=== PATIENT | male | born 1940 | race Caucasian/White ===

== ENCOUNTER 2020-10-28 21:11 | Observation (INO) | payer MEDICARE, SELFPAY ==
[2020-10-28] VITALS (21 sets, daily range): BP systolic 147–191; BP diastolic 61–85; PULSE 50–55; RESP 10–25; O2SAT 91–99
--- NOTE | ~2020-10-28 | XR_ITS ---
EXAMINATION: XR chest 2V DATE: 10/28/2020 21:50 INDICATION: Midsternal chest pain TECHNIQUE: AP and lateral views of the chest are obtained. COMPARISON: 07/07/2018 FINDINGS: The lungs are free of acute opacities. There is atelectasis or scarring in the left lung ba se. There is no pleural effusion or pneumothorax. The heart size is normal. Median sternotomy wires a nd mediastinal surgical clips are seen, likely from prior coronary artery bypass grafting. There is m ild thoracic spondylosis. IMPRESSION: 1. No acute cardiopulmonary abnormality. Reviewed, dictated and finalized at location A.
--- NOTE | 2020-10-28 21:15 | ECG_ITS ---
Measurements Intervals [place] Rate: 55 P: 39 [place]: 209 QRS: 3 QRSD: 93 T: 56 QT: 427 QTc: 410 Interpretive Statements SINUS BRADYCARDIA WITH FIRST DEGREE AV BLOCK DELAYED PRECORDIAL R/S TRANSITION BASELINE ARTIFACT- I, III, AVL ABNORMAL ECG Electronically Signed On 10-29-2020 6:29:09 CDT by Pranav Albarado D.O.
--- NOTE | 2020-10-28 21:30 | ED.CHESTPAIN ---
HPI - Chest Pain General Chief Complaint: Chest Pain Stated Complaint: cp; b/p issues Time Seen by Provider: 10/28/20 21:18 Source: patient Mode of arrival: ambulatory Limitations: no limitations History of Present Illness HPI narrative: Patient is an 80-year-old male complaining of chest pain, midsternal, pressure, intermittent, 8 out of 10 earlier, took nitro and now pain is resolved, started approximately 1 week ago. Patient states that he has been going under a lot of stress lately due to his 's recent diagnosis dementia. Patient denies any shortness of breath, abdominal pain, nausea, vomiting, diaphoresis, fever or chills Related Data Allergies Allergy/AdvReac Type Severity Reaction Status Date / Time No Known Allergies Allergy Verified 07/07/18 11:18 Review of Systems Review of Systems: All systems reviewed & are unremarkable except as noted in HPI and below Constitutional: Constitutional: Denies body ache(s), Denies chills, Denies excessive sweating, Denies fatigue, Denies fever(s), Denies headache(s), Denies lethargy, Denies malaise, Denies weakness and Denies weight loss Eyes: Eyes: Denies blurry vision, Denies change in vision and Denies loss of vision ENT: Denies dizziness, Denies ear discharge, Denies headache(s), Denies lip swelling, Denies epistaxis, Denies nasal congestion, Denies neck pain, Denies throat swelling and Denies tongue swelling Cardiovascular: Cardiovascular: Denies diaphoresis, Denies rapid heart rate, Denies edema, Denies irregular heart rhythm, Denies lightheadedness, Denies palpitations, Denies dyspnea and Denies dyspnea on exertion Respiratory: Respiratory: Denies chest congestion, Denies cough, Denies hemoptysis, Denies dyspnea and Denies dyspnea on exertion Gastrointestinal: Gastrointestinal: Denies abdominal pain, Denies melena, Denies hematochezia, Denies diarrhea, Denies nausea, Denies vomiting and Denies hematemesis Musculoskeletal: Musculoskeletal: Denies abnormal gait, Denies deformity, Denies joint swelling, Denies limited range of motion, Denies neck pain and Denies numbness Neurologic: Denies Abnormal speech present, Denies abnormal gait, Denies confusion, Denies dizziness, Denies headache(s), Denies focal weakness, Denies loss of vision, Denies numbness, Denies Other visual disturbances, Denies Sensory deficit (Neuro) and Denies weakness Psychiatric: Psychiatric: Denies confusion, Denies depression, Denies auditory hallucinations, Denies homicidal ideation and Denies suicidal ideation Endocrine: Endocrine: Denies cold intolerance, Denies excessive sweating, Denies fatigue, Denies heat intolerance and Denies palpitations Hematologic/Lymphatic: Hematologic/Lymphatic: Denies easy bleeding and Denies easy bruising Allergic/Immunologic: Allergic/Immunologic: Denies lip swelling, Denies throat swelling and Denies tongue swelling PMFSH Comments Past medical history: Hypertension, hyperlipidemia, coronary disease, CABG, stent placement Family history: Noncontributory Social history: Non-smoker, no EtOH use Exam Const: General: cooperative, healthy appearing, comfortable, no acute distress, well developed, alert and awake; No confusion Orientation/consciousness: oriented to person, oriented to place, oriented to time, patient oriented x3 and No confusion Limitations: no limitations HENMT: Head: normal to inspection, normocephalic and atraumatic Ears: hearing grossly normal bilaterally, TM normal on the right and TM normal on the left General nose exam: Normal external nose present, Normal nares present and No nasal discharge present Face and sinus: normal facial exam Mouth: Yes Normal oral and palatal mucosa present, Yes lip normal, Yes tongue normal and Yes oropharynx normal Throat: posterior oropharynx normal, tonsils normal and uvula midline Eyes: General: appearance normal, both eyes and all related structures Pupils: Equal, round and reactive pupils present EOM: EOMs intact bilate
[2020-10-28 21:43] LABS: Basophils Absolute Auto 0.1 K/mm3 (0.0-0.1); Basophils Percent Auto 0.9 % (0.2-1.2); Eosinophils Absolute Auto 0.2 K/mm3 (0-0.3); Eosinophils Percent Auto 2.7 % (0-4.4); Hemoglobin 14.2 g/dL (14.0-18.0); Immature Granulocyte Absolute 0.01 K/mm3 (0.00-0.031); Immature Granulocyte Percent A 0.2 % (0-0.5); Lymphocytes Absolute Auto 1.66 K/mm3 (0.9-3.2); Lymphocytes Percent Auto 30.3 % (18.3-44.2); Mean Corpuscular Hemoglobin 31.8 pg (26-34); Mean Corpuscular Volume 96.4 fl (80-100); Mean Platelet Volume 10.7 fl (7.4-10.4); Monocytes Absolute Auto 0.6 K/mm3 (0.1-0.6); Monocytes Percent Auto 10.4 % (2.6-8.5); Neutrophils Percent Auto 55.5 % (45.5-73.1); Platelet Count Result 157 k/mm3 (150-375); Red Blood Count 4.46 M/mm3 (4.6-6.20); Red Cell Distribution Width 12.9 % (11.5-14.5); White Blood Count 5.5 K/mm3 (4.5-10.0)
[2020-10-28 21:52] LABS: INR 0.9; Prothrombin Time 13.2 Seconds (11.1-14.7)
[2020-10-28 21:53] LABS: Partial Thromboplastin Time 25.9 SECONDS (22.3-36.8)
[2020-10-28 21:55] LABS: Anion Gap 9 mmol/L (8-16); Blood Urea Nitrogen 14 mg/dL (9-20); Calcium 9.3 mg/dL (8.4-10.2); Carbon Dioxide 24 mmol/L (22-30); Chloride 106 mmol/L (98-107); Estimated CRCL calculation 55 ml/min; Estimated Glomerular Filt Rate > 60; Glucose 96 mg/dL (75-110); Potassium 4.1 mmol/L (3.4-5.0); Sodium 139 mmol/L (137-145)
[2020-10-28 22:06] LABS: Troponin I < 0.012 ng/mL (0.000-0.034)
[2020-10-28] MEDS: NITROGLYCERIN OINTMENT 1 INCH DOSE TRANSDERM (22:26)
[2020-10-29] VITALS (14 sets, daily range): BP systolic 143–180; BP diastolic 59–85; PULSE 47–60; RESP 16–20; TEMP 36–36.4; O2SAT 98–100; BMI 26.7
--- NOTE | 2020-10-29 00:11 | PC.NURSE ---
This patient, Taurus Reid, was admitted to IMU Room 205-02 on 10/29/20 at 0010. Patient/family oriented to hospital policies and general routines including ID bracelet, bed and alarms, visiting hours, pain management, procedures, bathroom and other care routines, personal items, smoking policy, room service/diet, and visiting hours. Information on how to activate the Rapid Response Team has been discussed. Patient/Family are encouraged to report perceived risks to care and to ask questions if they do not understand what they are told or what they should do.
[2020-10-29 01:26] LABS: Troponin I < 0.012 ng/mL (0.000-0.034)
--- NOTE | 2020-10-29 04:34 | PM.IMHP ---
H&P: HPI History of Present Illness Date/Time: 10/29/20 04:34 Chief Complaint: chest pain Narrative: Patient is an 80-year-old male who present to the ed with compalis of chest pain, which is midsternal in location, 8/10 in intensity, intermittently happening since a week now. however was severe yeserday afternoon. he took some nitro which hleped some but he came to the ED for evaluation. By the time, he got in the ED, the chest pain has resovled. he reports he has not had any chest pain but has some chest discomfort which has been persistnet. he reports he has been going through a lot of stress lately due to his 's recent diagnosis of dementia. he blaise any sob, abdominal pain, nausea, vmoitgin, diaphoreiss or fever or chills. The chest pain are non exertional in nature. he is planned to see Dr. Thomas in 2 weeks for his cardiac follow up. Review of Systems Review of Systems: Narrative: - CONSTITUTIONAL: Denies weight loss, fever and chills. - HEENT: Denies changes in vision and hearing - RESPIRATORY: Denies SOB and cough. - CV: Denies palpitations and reports CP. - GI: Denies abdominal pain, nausea, vomiting and diarrhea. - : Denies dysuria and urinary frequency. - MSK: Denies myalgia and joint pain. - SKIN: Denies rash and pruritus. - NEUROLOGICAL: Denies headache and syncope. - PSYCHIATRIC: Denies recent changes in mood. Denies anxiety and depression. All systems reviewed & are unremarkable except as noted in HPI and below [facility] Family History Family History Mother Cerebral hemorrhage Hypertension Cerebrovascular accident Sibling Diabetes mellitus Breast cancer Hypertension Sibling Breast cancer Sibling Lung cancer Social History Social History Smoking packs per day: 0.5 Smoking cigarettes per day: 10.0 Years smoked: 6 Smoking pack-years: 3.00 Smoking status: Former smoker Alcohol intake: current Drinks per week: 6 Substance use: never Spiritual care concerns: No Meds Home Medications and Allergies Home Medications Medication Instructions Recorded Confirmed Type acetaminophen [Tylenol Extra 500 mg PO Q6H 10/29/20 10/29/20 History Strength] alprazolam 0.5 mg PO BID PRN 10/29/20 10/29/20 History aspirin 325 mg PO DAILY 10/29/20 10/29/20 History bupropion HCl 150 mg PO BID 10/29/20 10/29/20 History metoprolol succinate 50 mg PO DAILY 10/29/20 10/29/20 History rosuvastatin 5 mg PO DAILY 10/29/20 10/29/20 History tamsulosin 0.4 mg PO BID 10/29/20 10/29/20 History Allergies Allergy/AdvReac Type Severity Reaction Status Date / Time No Known Allergies Allergy Verified 10/29/20 00:38 Vital Signs Vital Signs - 24 hr 10/28/20 21:20 10/28/20 21:22 10/28/20 21:27 Temperature Pulse Rate 52 L 55 L 54 L Respiratory Rate 23 H 10 L 14 Blood Pressure 180/85 H 180/85 H Pulse Oximetry 99 99 97 10/28/20 21:30 10/28/20 21:31 10/28/20 21:49 Temperature Pulse Rate 54 L 52 L 55 L Respiratory Rate 21 H 15 19 Blood Pressure 191/77 H Pulse Oximetry 95 97 97 10/28/20 21:50 10/28/20 22:11 10/28/20 22:12 Temperature Pulse Rate 51 L 50 L 51 L Respiratory Rate 19 17 17 Blood Pressure 161/70 H 152/67 H Pulse Oximetry 94 97 95 10/28/20 22:15 10/28/20 22:16 10/28/20 22:30 Temperature Pulse Rate 50 L 50 L 51 L Respiratory Rate 25 H 19 18 Blood Pressure 148/67 H Pulse Oximetry 96 94 94 10/28/20 22:31 10/28/20 22:45 10/28/20 23:00 Temperature Pulse Rate 50 L 51 L 51 L Respiratory Rate 17 20 18 Blood Pressure 147/61 H Pulse Oximetry 93 95 94 10/28/20 23:01 10/28/20 23:02 10/28/20 23:15 Temperature Pulse Rate 51 L 50 L 53 L Respiratory Rate 17 16 23 H Blood Pressure 155/70 H Pulse Oximetry 95 96 91 10/28/20 23:30 10/28/20 23:31 10/28/20 23:49 Temperature Pulse Rate 51 L 51 L 54 L Respiratory Rate 17 16 14 Blood Pressure 155/72 H Pulse
[2020-10-29 04:54] LABS: Cholesterol 152 mg/dL (0-200); HDL Direct 40 mg/dL; Triglycerides 243 mg/dL (<150)
[2020-10-29 05:04] LABS: LDL Cholesterol Direct 64 mg/dL
[2020-10-29 05:13] LABS: Troponin I < 0.012 ng/mL (0.000-0.034)
--- NOTE | 2020-10-29 06:05 | ECG_ITS ---
Measurements Intervals [place] Rate: 49 P: 26 [place]: 266 QRS: -4 QRSD: 94 T: 50 QT: 439 QTc: 396 Interpretive Statements SINUS BRADYCARDIA WITH FIRST DEGREE AV BLOCK DELAYED PRECORDIAL R/S TRANSITION ABNORMAL ECG Electronically Signed On 10-29-2020 10:26:54 CDT by Pranav Albarado D.O.
[2020-10-29] MEDS: NITROGLYCERIN SL 0.4 MG TABLET SUBLINGUAL ×2 (06:15→06:21)
[2020-10-29 07:04] LABS: Troponin I < 0.012 ng/mL (0.000-0.034)
--- NOTE | 2020-10-29 07:58 | PM.IMPN ---
Progress Note: A&P Assessment and Plan (1) Chest pain: Qualifiers: Chest pain type: unspecified Qualified Code(s): R07.9 - Chest pain, unspecified Code(s): R07.9 - Chest pain, unspecified Status: Acute Assessment and Plan: First set of cardiac enzyme is negative. Cardiology consult ordered. (2) Hypertension: Qualifiers: Hypertension type: essential hypertension Qualified Code(s): I10 - Essential (primary) hypertension Code(s): I10 - Essential (primary) hypertension Status: Acute Assessment and Plan: Stable on meds (3) Hx of CABG: Code(s): Z95.1 - Presence of aortocoronary bypass graft Status: Acute Assessment and Plan: cardiology consult ordered (4) History of heart artery stent: Code(s): Z95.5 - Presence of coronary angioplasty implant and graft Status: Acute Assessment and Plan: stable on meds, cardiology consult ordered (5) Former smoker: Code(s): Z87.891 - Personal history of nicotine dependence Status: Acute Assessment and Plan: counseling given (6) Hyperlipidemia: Code(s): E78.5 - Hyperlipidemia, unspecified Status: Acute Assessment and Plan: stable on meds (7) BPH (benign prostatic hyperplasia): Code(s): N40.0 - Benign prostatic hyperplasia without lower urinary tract symptoms Status: Acute Assessment and Plan: stable on meds Additional Plan # Atypcial Chest pain: serial troponin. ekg sinus bradyarida, compared to preivous EKG, no new changes. cardiology with dr Lamb consulted form ED. # Hx of CAD s/p CABG 2013 and previous stent placement: bb, statin, aspirin. # former smoker # HTN: intermittent high. which could be th reason for chest pain too. seng continue home medication adn monitor. # HLP # BPH # Recent stressor. # DVT proph: pas boots admit under observation status cardiology consult ordered. Will continue current treatment. Subjective Date/time seen: 10/29/20 07:58 Patient was seen during the morning rounds today. Patient had chest pain last night. No shortness of breath. No fever no chills. No nausea, vomiting. Mood stable. Review of Systems Review of Systems: All systems reviewed & are unremarkable except as noted in HPI and below Exam Narrative: Exam Narrative: GENERAL: The patient is well developed, not in acute distress HEENT: Nonicteric sclerae, PERRLA, EOMI. Oropharynx clear. Moist mucous membranes. Conjunctivae appear well perfused. CHEST: Chest wall is nontender. HEART: Regular rate and rhythm without murmur, rubs, or gallops LUNGS: Clear to auscultation bilaterally. no respiratory distress ABDOMEN: Soft, positive bowel sounds, non-tender, no organomegaly. SKIN: No rash, no excessive bruising, petechiae, or purpura. NEUROLOGIC: Cranial nerves II-XII intact, alert and oriented x 3, no gross motor deficits EXTREMITIES: no edema, cyanosis or clubbing Objective Data Vital Signs Vital Signs: Vital Signs - 24 hr 10/28/20 21:20 10/28/20 21:22 10/28/20 21:27 Temperature Pulse Rate 52 L 55 L 54 L Respiratory Rate 23 H 10 L 14 Blood Pressure 180/85 H 180/85 H Pulse Oximetry 99 99 97 10/28/20 21:30 10/28/20 21:31 10/28/20 21:49 Temperature Pulse Rate 54 L 52 L 55 L Respiratory Rate 21 H 15 19 Blood Pressure 191/77 H Pulse Oximetry 95 97 97 10/28/20 21:50 10/28/20 22:11 10/28/20 22:12 Temperature Pulse Rate 51 L 50 L 51 L Respiratory Rate 19 17 17 Blood Pressure 161/70 H 152/67 H Pulse Oximetry 94 97 95 10/28/20 22:15 10/28/20 22:16 10/28/20 22:30 Temperature Pulse Rate 50 L 50 L 51 L Respiratory Rate 25 H 19 18 Blood Pressure 148/67 H Pulse Oximetry 96 94 94 10/28/20 22:31 10/28/20 22:45 10/28/20 23:00 Temperature Pulse Rate 50 L 51 L 51 L Respiratory Rate 17 20 18 Blood Pressure 147/61 H Pulse Oximetry 93 95 94 10/28/20 23:01 10/28/20 23:
[2020-10-29] MEDS: ASPIRIN 325 MG TABLET PO (08:35)
[2020-10-29] MEDS: ROSUVASTATIN 5 MG TABLET PO (08:36)
--- NOTE | 2020-10-29 08:52 | PM.CNCAR ---
Assessment and Plan Additional Plan 1- Chest pain. 2- uncontrolled hypertension. 3- history of CABG. 4- hyperlipidemia. 5- sinus bradycardia secondary to Toprol XL. this is a 80-year-old patient with past history of CABG, hypertension, hyperlipidemia who presents to the hospital with central chest discomfort. This started because he has lately being stressed out about his getting dementia. He does not have Much help at home. EKGs show no ischemia. Troponin is negative. His chest pain is atypical. Blood pressure on presentation 180/100. Agree with adding lisinopril 10 mg twice a day. Continue Toprol-XL. - relieve his chest pain is related to uncontrolled hypertension And stress.no indication at this time for ischemic evaluation. will aim at controlling blood pressure. - If patient tolerates lisinopril he can be discharged home later on. Patient has appointment to follow-up with Dr. Thomas on November 23. History of Present Illness History of Present Illness Consult date/time: Date of service: 10/29/20 08:52 Requesting physician: Asaf Mcdonough MD Consult reason: chest pain Reason For Visit: CHEST PAIN Narrative: Is 80-year-old patient with past medical history of CABG,hyperlipidemia, depression and hypertension.He follows up with Dr. Thomas. he is under a lot of stress because his is developing dementia. He describes central chest mild discomfort with no radiation. Aggravated by stress. He describes it as stress ache . denies shortness of breath,, dizziness, syncope, palpitations. His blood pressure at home has been running high as he mentions. His grandson and granddaughter help with his . blood pressure on admission 180/100 and now blood pressure running between 140s to 160 systolic. Heart rate in the 50s, chest x-ray reviewed and analyzed massive looks unremarkable, EKG reviewed as myself looks unremarkable. Creatinine 1. Troponins x4 negative. Review of Systems Constitutional: Constitutional: Denies chills, Denies fever(s) and Denies poor appetite Eyes: Eyes: Denies eye discharge, Denies loss of vision, Denies eye pain and Denies photophobia ENT: Denies dizziness, Denies epistaxis, Denies nasal congestion and Denies sore throat Cardiovascular: Cardiovascular: Reports chest pain, Reports chest pain at rest, Denies syncope, Denies pedal edema, Denies leg edema, Denies palpitations, Denies dyspnea, Denies dyspnea on exertion and Denies orthopnea Respiratory: Respiratory: Denies cough, Denies dyspnea, Denies dyspnea on exertion and Denies wheezing Gastrointestinal: Gastrointestinal: Denies abdominal pain, Denies diarrhea, Denies nausea and Denies vomiting Genitourinary: Genitourinary: Denies hematuria, Denies genital lesions and Denies dysuria Musculoskeletal: Musculoskeletal: Denies arthralgias, Denies joint swelling and Denies numbness Integumentary/Breasts: Skin/Breast: Denies pruritus and Denies rash Neurologic: Denies dizziness, Denies syncope, Denies loss of vision and Denies numbness Psychiatric: Psychiatric: Denies anxiety and Denies depression Endocrine: Endocrine: Denies cold intolerance, Denies heat intolerance and Denies palpitations Hematologic/Lymphatic: Hematologic/Lymphatic: Denies easy bleeding and Denies easy bruising Allergic/Immunologic: Allergic/Immunologic: Denies urticaria and Denies wheezing [facility] Family History Family History Mother Cerebral hemorrhage Hypertension Cerebrovascular accident Sibling Diabetes mellitus Breast cancer Hypertension Sibling Breast cancer Sibling Lung cancer Social History Social History Smoking packs per day: 0.5 Smoking cigarettes per day: 10.0 Years smoked: 6 Smoking pack-years: 3.00 Smoking status: Former smoker Alcohol intake: current Drinks per week: 6 Substance use: never Spiritual care concerns: No Meds Home Medicatio
[2020-10-29 10:04] LABS: Troponin I < 0.012 ng/mL (0.000-0.034)
[2020-10-29] MEDS: METOPROLOL SUCCINATE EXT REL 50 MG TABCR PO (10:12)
[2020-10-29] MEDS: TAMSULOSIN HCL 0.4 MG CAPSULE PO (10:12)
[2020-10-29] MEDS: HEPARIN SODIUM 5,000 UNITS/ML VIAL 5000 UNITS SUB-Q (10:13)
[2020-10-29] MEDS: lisinopriL 10 MG TABLET PO ×2 (11:08→15:52)
[2020-10-29 14:22] LABS: Troponin I < 0.012 ng/mL (0.000-0.034)
--- NOTE | 2020-10-29 16:40 | PC.NURSE ---
Home meds returned to patient @1640.
--- NOTE | 2020-11-19 11:21 | PM.DS ---
DS: Admitting Diagnosis Admitting Diagnosis Admitting Diagnosis: Chest pain Hypertension DS: Discharge Diagnosis Discharge Diagnosis (1) Chest pain: Qualifiers: Chest pain type: unspecified Qualified Code(s): R07.9 - Chest pain, unspecified Code(s): R07.9 - Chest pain, unspecified Status: Acute Assessment and Plan: First set of cardiac enzyme is negative. Cardiology consult ordered. (2) Hypertension: Qualifiers: Hypertension type: essential hypertension Qualified Code(s): I10 - Essential (primary) hypertension Code(s): I10 - Essential (primary) hypertension Status: Acute Assessment and Plan: Stable on meds (3) Hx of CABG: Code(s): Z95.1 - Presence of aortocoronary bypass graft Status: Acute Assessment and Plan: cardiology consult ordered (4) History of heart artery stent: Code(s): Z95.5 - Presence of coronary angioplasty implant and graft Status: Acute Assessment and Plan: stable on meds, cardiology consult ordered (5) Former smoker: Code(s): Z87.891 - Personal history of nicotine dependence Status: Acute Assessment and Plan: counseling given (6) Hyperlipidemia: Code(s): E78.5 - Hyperlipidemia, unspecified Status: Acute Assessment and Plan: stable on meds (7) BPH (benign prostatic hyperplasia): Code(s): N40.0 - Benign prostatic hyperplasia without lower urinary tract symptoms Status: Acute Assessment and Plan: stable on meds DS: Summary Hospital Course Reason for hospitalization: Chest Pain Hospital Course: Patient was admitted with chest pain. Patient has history of hypertension. Serial enzymes and medical management was provided. Patient was discharged home in stable condition. Time spent discussing smoking cessation with patient: 3 to 10 minutes Time Spent with Patient Time attestation: Total time spent providing and/or coordinating discharge services: Time spent: Less than 30 minutes Exam Narrative: Exam Narrative: GENERAL: The patient is well developed, not in acute distress HEENT: Nonicteric sclerae, PERRLA, EOMI. Oropharynx clear. Moist mucous membranes. Conjunctivae appear well perfused. CHEST: Chest wall is nontender. HEART: Regular rate and rhythm without murmur, rubs, or gallops LUNGS: Clear to auscultation bilaterally. no respiratory distress ABDOMEN: Soft, positive bowel sounds, non-tender, no organomegaly. SKIN: No rash, no excessive bruising, petechiae, or purpura. NEUROLOGIC: Cranial nerves II-XII intact, alert and oriented x 3, no gross motor deficits EXTREMITIES: no edema, cyanosis or clubbing Discharge Plan Discharge Attending physician on discharge: genaro Consulting providers: Juan Priest ; Gabriel Roberts ; Pranav Albarado Discharging Clinician: genaro Patient Disposition: Home, Self-Care Activity: as tolerated Diet: heart healthy Patient Instructions: Antibiotic Form Stand Alone Forms: General Discharge Information Follow-up/Referrals: Tod Cornelius MD [Physician] - Gabriel Roberts MD [Physician] - 1 Week Adriana,Raheel Rivera MD [Primary Care Provider] - Discharge Medications: New lisinopril 10 mg Tablet 10 mg PO Q12HR Qty: 60 RF: 0 nitroglycerin [Nitrostat] 0.4 mg Tablet, Sublingual 0.4 mg sublingual Q5MIN PRN (Reason: Chest Pain) Qty: 30 RF: 0 Continued bupropion HCl 150 mg tablet sustained-release 12 hr 150 mg PO BID RF: 0 aspirin 325 mg Tablet 325 mg PO DAILY RF: 0 metoprolol succinate 50 mg tablet extended release 24 hr 50 mg PO DAILY RF: 0 acetaminophen [Tylenol Extra Strength] 500 mg Tablet 500 mg PO Q6H RF: 0 alprazolam 0.5 mg tablet 0.5 mg PO BID PRN (Reason: Anxiety) RF: 0 tamsulosin 0.4 mg capsule 0.4 mg PO BID RF: 0 rosuvastatin 5 mg tablet 5 mg PO DAILY RF: 0 Date of admission: 10/28/20 22:50 Primary Care
== END 2020-10-29 16:49 | disposition home or self-care (01) ==
LOC: ANHED 22:56 → ANHIMU 10-29 07:48
PROVIDERS: Admitting Provider Internal Medicine; Emergency Provider Emergency Medicine; PCP Family Medicine; Visit Provider Internal Medicine
DX: R07.9 Chest pain, unspecified (principal); I10 Essential (primary) hypertension; E78.5 Hyperlipidemia, unspecified; N40.0 Benign prostatic hyperplasia without lower urinary tract symptoms; Z95.5 Presence of coronary angioplasty implant and graft; Z95.1 Presence of aortocoronary bypass graft; Z87.891 Personal history of nicotine dependence
CPT/HCPCS: 36415; 71046; 80048; 80061; 84443; 84484; 85025; 85610; 85730; 93005; 96372; 99285; A9270; G0378; J1644

== ENCOUNTER 2024-03-23 08:51 | Observation (INO) | payer MEDICARE, SELFPAY ==
--- NOTE | ~2024-03-23 | CT_ITS ---
EXAMINATION: CT brain wo con DATE: 03/23/2024 11:52 INDICATION: Head injury. TECHNIQUE: Computed tomography (CT) of the head was performed without intravenous contrast. The mA wa s adjusted according to patient size. Iterative reconstruction technique was employed. The dose-lengt h product was 908.00 mGy-cm. 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 There is no intracranial hemorrhage, acute infarction, or abnormal intracranial mass lesion. There are scattered areas of low attenuation in the cerebral white matter, which is within normal limits for the patient's age. The ventricles are normal in size. There are likely changes of ocular lens replacement surgeries. There is mild mucosal thickening in the ethmoid sinuses. The mastoid air cells are normal. IMPRESSION: 1. 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 Reviewed, dictated and finalized at location A.
--- NOTE | ~2024-03-23 | CT_ITS ---
EXAMINATION: CT chest abdomen pelvis w con DATE: 03/23/2024 11:52 INDICATION: Abdominal pain. Nausea and vomiting. Shortness of breath. TECHNIQUE: Computed tomography (CT) of the chest, abdomen, and pelvis was performed with 100 mL Omnip aque 350 intravenous contrast. Automated exposure control and iterative reconstruction technique were employed. The dose-length product was 460.75 mGy-cm. COMPARISON: Chest CT 05/19/2015 FINDINGS: CHEST CT: There is mild scarring at the lung apices. There is mild atelectasis bilaterally. There is a trace le ft pleural effusion. The heart size is normal. There are coronary artery calcifications. No pericardi al effusion. There are changes of coronary artery bypass grafting. There is ectasia of ascending aort a measuring 4.3 cm. There is mild thoracic spondylosis. ABDOMEN/PELVIS CT: The liver and gallbladder are normal. There are subcentimeter hypodense masses in the spleen, likely granulomatosis disease. The pancreas and adrenal glands are normal. There are striated nephrograms in the kidneys, left worse than right, consistent with pyelonephritis. There is a right inguinal hernia containing nonobstructed small bowel. There is a left inguinal hernia containing fat. There is calci fied atherosclerosis of the aorta and many of the other arteries. There are 3 saccular aneurysms of i nfrarenal aorta with the largest measuring 2.5 cm. There are no pathologically enlarged lymph nodes. There is no free intraperitoneal fluid. There is moderate lumbar spondylosis. IMPRESSION: 1. Bilateral pyelonephritis, left worse than right. 2. Right inguinal hernia containing nonobstructed small bowel. Left inguinal hernia containing fat. 3. 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 Reviewed, dictated and finalized at location A. IMPRESSION: 1. Bilateral pyelonephritis, left worse than right. 2. Right inguinal hernia containing nonobstructed small bowel. Left inguinal he rnia containing fat. 3. 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
[2024-03-23 08:53] VITALS: BP 142/117; PULSE 63; RESP 17; TEMP 36.5; O2SAT 96
[2024-03-23 09:03] VITALS: PULSE 60; O2SAT 96
[2024-03-23 09:09] VITALS: BP 100/67; PULSE 60; RESP 20; O2SAT 100
--- NOTE | 2024-03-23 09:34 | ED.GENADULT ---
HPI - General Adult General Chief complaint: Weakness Stated complaint: weakness, nausea & vomiting Time Seen by Provider: 03/23/24 08:56 History of Present Illness HPI narrative: 83-year-old male presenting to the emergency department for evaluation for increased generalized weakness with associated nausea and vomiting. Patient states he began feeling ill on Monday and did have his 1st emesis on Monday night and through . Patient states since he has had increasing generalized weakness did have some intermittent abdominal pain, patient has also had persistent hiccups since the emesis started. Patient was complaining of some shortness of breath and does appear to be more winded per family. Related Data Home Medications Medication Instructions Recorded Confirmed acetaminophen 500 mg tablet 500 mg PO Q6H 10/29/20 03/23/24 (Tylenol Extra Strength) alprazolam 0.5 mg tablet 0.5 mg PO BID PRN Anxiety 10/29/20 03/23/24 aspirin 325 mg tablet 325 mg PO DAILY 10/29/20 03/23/24 bupropion HCl 150 mg tablet,12 hr 150 mg PO BID 10/29/20 03/23/24 sustained-release metoprolol succinate 50 mg 50 mg PO DAILY 10/29/20 03/23/24 tablet,extended release 24 hr losartan 25 mg tablet 25 mg PO DAILY 03/23/24 03/23/24 Allergies Allergy/AdvReac Type Severity Reaction Status Date / Time No Known Allergies Allergy Verified 03/23/24 09:05 Review of Systems Review of Systems: All systems reviewed & are unremarkable except as noted in HPI and below PMFSH Family History Family History Mother Cerebral hemorrhage Hypertension Cerebrovascular accident Sibling Diabetes mellitus Breast cancer Hypertension Sibling Breast cancer Sibling Lung cancer Social History Social History Smoking packs per day: 1 Smoking cigarettes per day: 20.0 Years smoked: 2 Smoking pack-years: 2.00 Smoking status: Former smoker Tobacco type: cigarettes Alcohol intake: current Drinks per week: 4 Substance use: never Substance use type: does not use Do You Feel Safe in your Home?: Yes Lack of Transportation: No Lack of Food: Sometimes True Current Housing: I Have Housing Concerned About Future Housing: No Difficulty Paying Gas/Electric Bills: No Difficulty Paying for Meds: No Currently Unemployed: No Education: Decline to Answer Difficulty w/ Childcare or Family Care: No Spiritual care concerns: No Exam Narrative: APPEARANCE: Ill-appearing HEAD: normocephalic, atraumatic. EYES: PERRLA/EOMI, conjunctivae clear. NOSE: Normal no drainage EARS:TMS clear with good light reflex. THROAT: Pharynx clear, no exudate. NECK: Supple. No adenopathy, no masses. RESPIRATORY: Decreased breath sounds bilaterally CARDIOVASCULAR: Regular rate and rhythm without murmurs rubs or gallops. ABDOMINAL: Soft, nontender, nondistended, normal bowel sounds MUSCULOSKELETAL: Moves all extremities. Strength/ROM intact, No edema, No calf tenderness. NEURO: Alert. Cranial nerves II through XII intact. Good gait. Good coordination SKIN: Warm, dry. Normal Color Course Course Emergency Course: Patient was admitted to the hospitalist Vital Signs Vital signs: Vital Signs Temperature 97.7 F 03/23/24 08:53 Pulse Rate 63 03/23/24 08:53 Respiratory Rate 17 03/23/24 08:53 Blood Pressure 142/117 H 03/23/24 08:53 Pulse Oximetry 96 03/23/24 08:53 Oxygen Delivery Room Air 03/23/24 08:53 Temperature 101.3 F H 03/23/24 16:00 Pulse Rate 69 03/23/24 16:00 Respiratory Rate 20 03/23/24 16:00 Blood Pressure 103/54 L 03/23/24 16:00 Pulse Oximetry 98 03/23/24 16:00 Oxygen Delivery Room Air 03/23/24 13:24 Medical Decision Making [facility] Narrative Medical decision making narrative: 83-year-old male presenting to the emergency department for evaluation for increased
[2024-03-23 10:28] LABS: Add Urine Microscopic? YES; Appearance Urine Clear (Clear); Bacteria Urine 3+ /hpf; Bilirubin Urine Negative (Negative); Blood Urine 2+ (Negative); Color Urine Yellow (Yellow); Glucose Urine UA Negative (Negative); Ketones Urine Negative (Negative); Leukocyte Esterase Ur 2+ LEU/UL (Negative); Need Manual Microscopic Reviewed; Nitrate Urine Positive (Negative); Non Pathogenic Casts 0-2; Protein Urine 1+ mg/dL (Negative); RBC Urine 0-2 /hpf (0-2); Specific Grav Ur 1.007 (1.001-1.035); Squamous Epithelial Cell Urine None Seen /hpf (Few); Urobilinogen Urine 0.2 mg/dL (<2.0); WBC Urine 21-50 /hpf (0-3)
[2024-03-23 10:44] LABS: Basophils Absolute Auto 0.1 K/mm3 (0.0-0.1); Basophils Percent Auto 0.3 % (0.2-1.2); Eosinophils Percent Auto 0.1 % (0-4.4); Hematocrit 37.6 % (42.0-52.0); Hemoglobin 12.6 g/dL (14.0-18.0); Immature Granulocyte Absolute 0.23 K/mm3 (0.00-0.031); Immature Granulocyte Percent A 0.9 % (0-0.5); Lymphocytes Absolute Auto 1.07 K/mm3 (0.9-3.2); Lymphocytes Percent Auto 4.4 % (18.3-44.2); Mean Corpuscular HGB Conc 33.5 g/dl (32-36); Mean Corpuscular Hemoglobin 31.3 pg (26-34); Mean Corpuscular Volume 93.5 fl (80-100); Mean Platelet Volume 9.5 fl (7.4-10.4); Monocytes Absolute Auto 0.8 K/mm3 (0.1-0.6); Monocytes Percent Auto 3.4 % (2.6-8.5); Neutrophils Absolute Auto 22.1 K/mm3 (1.3-6.7); Neutrophils Percent Auto 90.9 % (45.5-73.1); Platelet Count Result 275 k/mm3 (150-375); Red Blood Count 4.02 M/mm3 (4.6-6.20); Red Cell Distribution Width 13.9 % (11.5-14.5); White Blood Count 24.3 K/mm3 (4.5-10.0)
[2024-03-23 10:53] LABS: Influenza A QL RT-PCR Negative (Negative); Influenza B QL RT-PCR Negative (Negative); RSV RNA, RT-PCR Negative (Negative); SARS-CoV-2 RNA PCR Negative (Negative)
[2024-03-23 10:56] LABS: Alanine Aminotransferase 20 U/L (6-50); Albumin Level 3.8 g/dL (3.5-5.1); Alkaline Phosphatase 200 U/L (38-126); Anion Gap 14 mmol/L (4-12); Aspartate Amino Transferase 43 U/L (17-59); Bilirubin,Total 1.2 mg/dL (0.2-1.3); Blood Urea Nitrogen 55 mg/dL (9-20); Calcium 9.1 mg/dL (8.4-10.2); Carbon Dioxide 19 mmol/L (22-30); Chloride 97 mmol/L (98-107); Estimated CRCL calculation 23 ml/min; Estimated Glomerular Filt Rate 36; Glucose 84 mg/dL (65-110); Potassium 4.7 mmol/L (3.4-5.0); Sodium 130 mmol/L (137-145)
[2024-03-23 10:57] LABS: INR 1.1; Prothrombin Time 14.2 Seconds (11.1-14.7)
[2024-03-23 10:58] LABS: Partial Thromboplastin Time 23.3 Seconds (22.3-36.8)
[2024-03-23] MEDS: SODIUM CHLORIDE 0.9% IV 1,000 ML 999 ML IV CONT (11:52)
[2024-03-23] MEDS: MORPHINE SULFATE (*CRX) 2 MG/ML INJ IV PUSH (11:53)
[2024-03-23 12:02] VITALS: BP 133/72; PULSE 84; RESP 20; O2SAT 100
--- NOTE | 2024-03-23 12:50 | PM.IMHP ---
H&P: HPI History of Present Illness Date/Time: 03/23/24 12:50 Chief Complaint: Weakness Narrative: 83-year-old male with PMHx: of HTN, HLD, CABG with aortocoronary bypass graft, BPH,Bladder cancer with urostomy present, presented to the ED with c/o ongoing weakness for the past 3 days. Mr. Reid reports experiencing n/v for the past three days, citing his first episode started on Monday, he admits that although he has a hx of having a poor appetite that his doctor prescribed medication for, he states that for the past 3 days he has only been able to eat a bowl of soup and then he experienced n/v. Daughter by the bedside reports that pt lives alone and is normally able to complete all his daily tasks, she states that she has noticed increase weakness as well in the past three days. ED Work-up reveals: Initial vitals: b/p100/67, rr20, pr60, sp02 %100 on RA T:98.4, initial labs Moderate leukocytosis, WBC 24.3, hyponatremia sodium 130, SHER, BUN 55, creatinine 1.8, UA positive for protein, blood and nitrates as well as leukocyte Esterase, urostomy present Sykes catheter exchanged, viral PCR was negative. CT chest abdomen pelvis with contrast reveals bilateral pyelonephritis left worse than right, right inguinal hernia containing nonobstructed small bowel. Left inguinal hernia containing fat. 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 Review of Systems Review of Systems: All systems reviewed & are unremarkable except as noted in HPI and below [facility] Family History Family History Mother Cerebral hemorrhage Hypertension Cerebrovascular accident Sibling Diabetes mellitus Breast cancer Hypertension Sibling Breast cancer Sibling Lung cancer Social History Social History Smoking packs per day: 1 Smoking cigarettes per day: 20.0 Years smoked: 2 Smoking pack-years: 2.00 Smoking status: Former smoker Tobacco type: cigarettes Alcohol intake: current Drinks per week: 4 Substance use: never Substance use type: does not use Do You Feel Safe in your Home?: Yes Lack of Transportation: No Lack of Food: Sometimes True Current Housing: I Have Housing Concerned About Future Housing: No Difficulty Paying Gas/Electric Bills: No Difficulty Paying for Meds: No Currently Unemployed: No Education: Decline to Answer Difficulty w/ Childcare or Family Care: No Spiritual care concerns: No Meds Home Medications and Allergies Home Medications Medication Instructions Recorded Confirmed Type acetaminophen 500 mg tablet 500 mg PO Q6H 10/29/20 03/23/24 History (Tylenol Extra Strength) alprazolam 0.5 mg tablet 0.5 mg PO BID PRN Anxiety 10/29/20 03/23/24 History aspirin 325 mg tablet 325 mg PO DAILY 10/29/20 03/23/24 History bupropion HCl 150 mg tablet,12 hr 150 mg PO BID 10/29/20 03/23/24 History sustained-release metoprolol succinate 50 mg 50 mg PO DAILY 10/29/20 03/23/24 History tablet,extended release 24 hr nitroglycerin 0.4 mg sublingual 0.4 mg sublingual Q5MIN PRN Chest 10/29/20 03/23/24 Rx tablet (Nitrostat) Pain #30 tabs losartan 25 mg tablet 25 mg PO DAILY 03/23/24 03/23/24 History Allergies Allergy/AdvReac Type Severity Reaction Status Date / Time No Known Allergies Allergy Verified 03/23/24 09:05 Vital Signs Vital Signs - 24 hr 03/23/24 08:53 03/23/24 09:03 03/23/24 09:03 Temperature 97.7 F Pulse Rate 63 60 Respiratory Rate 17 Blood Pressure 142/117 H Pulse Oximetry 96 96 Oxygen Delivery Room Air Room Air 03/23/24 09:09 03/23/24 12:02 Temperature Pulse Rate 60 84 Respiratory Rate 20 20 Blood Pressure 100/67 133/72 Pulse Oximetry 100 100 Oxygen Delivery Exam Narrative: APPEARANCE: resting in bed Well appearing, no pain, no distress, well-nourished. Daughter by the beside HEAD: nor
--- NOTE | 2024-03-23 13:15 | PC.NURSE ---
This patient, Taurus Reid, was admitted to 3 [facility] Surg Room 326-01 at 1315. Patient/family oriented to hospital policies and general routines including ID bracelet, bed and alarms, visiting hours, pain management, procedures, bathroom and other care routines, personal items, smoking policy, room service/diet, and visiting hours. Information on how to activate the Rapid Response Team has been discussed. Patient/Family are encouraged to report perceived risks to care and to ask questions if they do not understand what they are told or what they should do.
[2024-03-23 13:31] VITALS: BP 98/59; PULSE 84; RESP 20; TEMP 36.9; O2SAT 97
[2024-03-23 14:46] VITALS: BMI 17.9
[2024-03-23] MEDS: LACTATED RINGERS 1,000 ML 75 ML IV CONT (15:40)
--- NOTE | 2024-03-23 16:21 | PC.NURSE ---
On 03/23/24, the LACE PINNER, Erika, provided care and completed [facility] documentation on this patient. I have reviewed the LACE PINNER's documentation and agree with the findings.
[2024-03-23] MEDS: ONDANSETRON INJ 4 MG/2 ML VIAL IV PUSH (18:33)
[2024-03-23 20:00] VITALS: BP 113/48; PULSE 78; RESP 19; TEMP 37.4; O2SAT 98
[2024-03-23] MEDS: FAMOTIDINE 20 MG TABLET PO (20:22)
[2024-03-24] VITALS (10 sets, daily range): BP systolic 90–137; BP diastolic 43–60; PULSE 62–73; RESP 14–24; TEMP 36–38.5; O2SAT 93–100
[2024-03-24] MEDS: ONDANSETRON INJ 4 MG/2 ML VIAL IV PUSH (00:44)
[2024-03-24 06:52] LABS: Basophils Percent Auto 0.3 % (0.2-1.2); Eosinophils Percent Auto 0.2 % (0-4.4); Hematocrit 29.4 % (42.0-52.0); Hemoglobin 9.7 g/dL (14.0-18.0); Immature Granulocyte Absolute 0.08 K/mm3 (0.00-0.031); Immature Granulocyte Percent A 0.6 % (0-0.5); Lymphocytes Absolute Auto 0.57 K/mm3 (0.9-3.2); Lymphocytes Percent Auto 4.6 % (18.3-44.2); Mean Corpuscular Hemoglobin 31.6 pg (26-34); Mean Corpuscular Volume 95.8 fl (80-100); Mean Platelet Volume 9.3 fl (7.4-10.4); Monocytes Absolute Auto 0.9 K/mm3 (0.1-0.6); Neutrophils Absolute Auto 10.8 K/mm3 (1.3-6.7); Neutrophils Percent Auto 87.3 % (45.5-73.1); Platelet Count Result 262 k/mm3 (150-375); Red Blood Count 3.07 M/mm3 (4.6-6.20); Red Cell Distribution Width 14.1 % (11.5-14.5); White Blood Count 12.4 K/mm3 (4.5-10.0)
[2024-03-24 07:12] LABS: Anion Gap 9 mmol/L (4-12); Blood Urea Nitrogen 37 mg/dL (9-20); Calcium 8.5 mg/dL (8.4-10.2); Carbon Dioxide 22 mmol/L (22-30); Chloride 101 mmol/L (98-107); Estimated CRCL calculation 32 ml/min; Estimated Glomerular Filt Rate 48; Glucose 100 mg/dL (65-110); Potassium 4.2 mmol/L (3.4-5.0); Sodium 132 mmol/L (137-145)
--- NOTE | 2024-03-24 08:50 | PM.IMPN ---
Progress Note: A&P Assessment and Plan (1) N&V (nausea and vomiting): Code(s): R11.2 - Nausea with vomiting, unspecified Status: Acute Assessment and Plan: -last episode 03/22/2024 -zofran 4mg IV Q 4 p.r.n. -Advance diet as tolerated -diet.supplement as needed (2) Acute UTI: Code(s): N39.0 - Urinary tract infection, site not specified Status: Acute Assessment and Plan: urostomy present, with urine sediment, UA + -urine culture pending -continue urostomy care, Sykes bag exchanged in the ED -s/p: ceftriaxone 1 g IV P given in the ED -Continue ceftriaxone 1 g Q 24 hours (3) Acute pyelonephritis: Code(s): N10 - Acute pyelonephritis Status: Acute (4) BPH (benign prostatic hyperplasia): Code(s): N40.0 - Benign prostatic hyperplasia without lower urinary tract symptoms Status: Acute Assessment and Plan: -continue home medication (5) Hyperlipidemia: Code(s): E78.5 - Hyperlipidemia, unspecified Status: Acute Assessment and Plan: -continue home medication (6) Hypertension: Qualifiers: Hypertension type: essential hypertension Qualified Code(s): I10 - Essential (primary) hypertension Code(s): I10 - Essential (primary) hypertension Status: Acute Assessment and Plan: pressures are soft 98/59 -hold home b/p medication Losartan -monitor vitals q. 4 hrs -check orthostatic blood pressure daily (7) SHER (acute kidney injury): Code(s): N17.9 - Acute kidney failure, unspecified Status: Acute Assessment and Plan: Scr 1.8, pt reports unknown kidney failure -monitor/record I&Os -check BMP daily -avoid nephrotoxic medications *may consider renal US (8) Leukocytosis: Code(s): D72.829 - Elevated white blood cell count, unspecified Status: Acute Assessment and Plan: suspect likely due to UTI -check CBC daily -blood cultures pending (9) Hyponatremia: Code(s): E87.1 - Hypo-osmolality and hyponatremia Status: Acute Assessment and Plan: suspect likely due to poor oral intake -continue gentle hydration LR 75ML/HR (10) Presence of urostomy: Code(s): Z93.6 - Other artificial openings of urinary tract status Status: Acute Assessment and Plan: hx of bladder CA s/p: radiation urologist is Taurus Pratt( [facility]) -urostomy care daily -pt has supplies from home -Sykes bag exchanged in the ED Plan Continue home medications: VTE Prophylaxis: SCDs/Ravi hose DIET: advance as tolerated heart healthy Anticipated hospital stay: > 2 days Code Status: DNR Time Spent With Patient Time with patient: Greater than 35 minutes Subjective Date/time seen: 03/24/24 08:50 Interval history: Weakness Narrative retrieved from H/P: 83-year-old male with PMHx: of HTN, HLD, CABG with aortocoronary bypass graft, BPH,Bladder cancer with urostomy present, presented to the ED with c/o ongoing weakness for the past 3 days. Mr. Reid reports experiencing n/v for the past three days, citing his first episode started on Monday, he admits that although he has a hx of having a poor appetite that his doctor prescribed medication for, he states that for the past 3 days he has only been able to eat a bowl of soup and then he experienced n/v. Daughter by the bedside reports that pt lives alone and is normally able to complete all his daily tasks, she states that she has noticed increase weakness as well in the past three days. ED Work-up reveals: Initial vitals: b/p100/67, rr20, pr60, sp02 %100 on RA T:98.4, initial labs Moderate leukocytosis, WBC 24.3, hyponatremia sodium 130, SHER, BUN 55, creatinine 1.8, UA positive for protein, blood and nitrates as well as leukocyte Esterase, urostomy present Sykes catheter exchanged, viral PCR was negative. CT chest abdomen pelvis with contrast reveals bilateral pyelonephritis left worse than right, right
[2024-03-24] MEDS: ACETAMINOPHEN 500 MG TABLET PO ×3 (09:24→17:32)
[2024-03-24] MEDS: ASPIRIN 325 MG TABLET PO (09:24)
[2024-03-24] MEDS: buPROPion HCL SR (12 HR) 150 MG TAB PO ×2 (09:24→17:32)
[2024-03-24] MEDS: FAMOTIDINE 20 MG TABLET PO ×2 (09:24→20:17)
--- NOTE | 2024-03-24 18:50 | PC.NURSE ---
RN called Julienne because when RN was changing the urostomy pt kept rubbing his chest saying he was having really bad indigestion. RN called hospitalist because RN noticed that we didn't have a baseline EKG and pt has a history of chest pain, TIA's. Hospitalist added an order for EKG and tums prn for the pt.
--- NOTE | 2024-03-24 18:53 | ECG_ITS ---
Test Date: 2024-03-25 08:59:27 Measurements Intervals [place] Rate: 74 P: 87 GA: 257 QRS: 37 QRSD: 93 T: -15 QT: 402 QTc: 447 Interpretive Statements SINUS RHYTHM WITH FIRST DEGREE AV BLOCK WITH OCCASIONAL VENTRICULAR PREMATURE COMPLEXES SEPTAL MYOCARDIAL INFARCTION [40+ ms Q WAVE IN V1/V2], PROBABLY OLD No previous ECG available for comparison Electronically Signed On 03-25-2024 14:34:51 CDT by George Marcum M.D.
[2024-03-25] VITALS (9 sets, daily range): BP systolic 119–168; BP diastolic 58–85; PULSE 62–82; RESP 16–24; TEMP 35.8–36.9; O2SAT 94–100; BMI 18.8
[2024-03-25] MEDS: ACETAMINOPHEN 500 MG TABLET PO ×3 (00:48→16:39)
[2024-03-25 06:42] LABS: Basophils Percent Auto 0.4 % (0.2-1.2); Eosinophils Absolute Auto 0.1 K/mm3 (0-0.3); Eosinophils Percent Auto 2.2 % (0-4.4); Hematocrit 28.6 % (42.0-52.0); Hemoglobin 9.7 g/dL (14.0-18.0); Immature Granulocyte Absolute 0.03 K/mm3 (0.00-0.031); Immature Granulocyte Percent A 0.6 % (0-0.5); Lymphocytes Absolute Auto 0.44 K/mm3 (0.9-3.2); Lymphocytes Percent Auto 8.7 % (18.3-44.2); Mean Corpuscular HGB Conc 33.9 g/dl (32-36); Mean Corpuscular Hemoglobin 31.8 pg (26-34); Mean Corpuscular Volume 93.8 fl (80-100); Monocytes Absolute Auto 0.6 K/mm3 (0.1-0.6); Monocytes Percent Auto 11.8 % (2.6-8.5); Neutrophils Absolute Auto 3.9 K/mm3 (1.3-6.7); Neutrophils Percent Auto 76.3 % (45.5-73.1); Platelet Count Result 250 k/mm3 (150-375); Red Blood Count 3.05 M/mm3 (4.6-6.20); Red Cell Distribution Width 13.9 % (11.5-14.5); White Blood Count 5.1 K/mm3 (4.5-10.0)
[2024-03-25 06:54] LABS: Anion Gap 10 mmol/L (4-12); Blood Urea Nitrogen 27 mg/dL (9-20); Calcium 8.6 mg/dL (8.4-10.2); Carbon Dioxide 21 mmol/L (22-30); Chloride 103 mmol/L (98-107); Estimated CRCL calculation 33 ml/min; Estimated Glomerular Filt Rate 53; Glucose 109 mg/dL (65-110); Potassium 3.6 mmol/L (3.4-5.0); Sodium 134 mmol/L (137-145)
[2024-03-25] MEDS: FAMOTIDINE 20 MG TABLET PO ×2 (08:17→20:20)
[2024-03-25] MEDS: buPROPion HCL SR (12 HR) 150 MG TAB PO ×2 (08:17→16:38)
[2024-03-25] MEDS: ASPIRIN 325 MG TABLET PO (08:18)
--- NOTE | 2024-03-25 11:07 | PM.IMPN ---
Progress Note: A&P Assessment and Plan (1) N&V (nausea and vomiting): Code(s): R11.2 - Nausea with vomiting, unspecified Status: Acute Assessment and Plan: -last episode 03/22/2024 -zofran 4mg IV Q 4 p.r.n. -Advance diet as tolerated -diet.supplement as needed - no episodes of n/v overnight- stable (2) Acute UTI: Code(s): N39.0 - Urinary tract infection, site not specified Status: Acute Assessment and Plan: urostomy present, with urine sediment, UA + -urine culture pending -continue urostomy care, Sykes bag exchanged in the ED -s/p: ceftriaxone 1 g IV P given in the ED -Continue ceftriaxone 1 g Q 24 hours - possibly de escalate to PO on 03/26 (3) Acute pyelonephritis: Code(s): N10 - Acute pyelonephritis Status: Acute (4) BPH (benign prostatic hyperplasia): Code(s): N40.0 - Benign prostatic hyperplasia without lower urinary tract symptoms Status: Acute Assessment and Plan: -continue home medication (5) Hyperlipidemia: Code(s): E78.5 - Hyperlipidemia, unspecified Status: Acute Assessment and Plan: -continue home medication (6) Hypertension: Qualifiers: Hypertension type: essential hypertension Qualified Code(s): I10 - Essential (primary) hypertension Code(s): I10 - Essential (primary) hypertension Status: Acute Assessment and Plan: pressures are soft 98/59 -hold home b/p medication Losartan -monitor vitals q. 4 hrs -check orthostatic blood pressure daily (7) SHER (acute kidney injury): Code(s): N17.9 - Acute kidney failure, unspecified Status: Acute Assessment and Plan: Scr 1.8, pt reports unknown kidney failure -monitor/record I&Os -check BMP daily -avoid nephrotoxic medications *may consider renal US (8) Leukocytosis: Code(s): D72.829 - Elevated white blood cell count, unspecified Status: Acute Assessment and Plan: suspect likely due to UTI -check CBC daily -blood cultures pending (9) Hyponatremia: Code(s): E87.1 - Hypo-osmolality and hyponatremia Status: Acute Assessment and Plan: suspect likely due to poor oral intake -continue gentle hydration LR 75ML/HR (10) Presence of urostomy: Code(s): Z93.6 - Other artificial openings of urinary tract status Status: Acute Assessment and Plan: hx of bladder CA s/p: radiation urologist is Taurus Pratt( [facility]) -urostomy care daily -pt has supplies from home -Sykes bag exchanged in the ED Plan Continue home medications: VTE Prophylaxis: SCDs/Ravi hose DIET: advance as tolerated heart healthy Anticipated hospital stay: > 2 days Code Status: DNR Time Spent With Patient Time with patient: Greater than 35 minutes Subjective Date/time seen: 03/25/24 11:07 Interval history: Weakness Narrative retrieved from H/P: 83-year-old male with PMHx: of HTN, HLD, CABG with aortocoronary bypass graft, BPH,Bladder cancer with urostomy present, presented to the ED with c/o ongoing weakness for the past 3 days. Mr. Reid reports experiencing n/v for the past three days, citing his first episode started on Monday, he admits that although he has a hx of having a poor appetite that his doctor prescribed medication for, he states that for the past 3 days he has only been able to eat a bowl of soup and then he experienced n/v. Daughter by the bedside reports that pt lives alone and is normally able to complete all his daily tasks, she states that she has noticed increase weakness as well in the past three days. ED Work-up reveals: Initial vitals: b/p100/67, rr20, pr60, sp02 %100 on RA T:98.4, initial labs Moderate leukocytosis, WBC 24.3, hyponatremia sodium 130, SHER, BUN 55, creatinine 1.8, UA positive for protein, blood and nitrates as well as leukocyte Esterase, urostomy present Sykes catheter exchanged, viral PCR was negative. CT chest abdomen pelvi
--- NOTE | 2024-03-25 12:18 | PC.NURSE ---
On 03/25/24, the student, [Orestes Dalton ], provided care and completed [facility] documentation on this patient. I have reviewed the student's documentation and agree with the findings.
[2024-03-25] MEDS: CALCIUM CARBONATE (TUMS) 500 MG (200 MG ELEMENTAL) PO (16:37)
[2024-03-25] MEDS: ALPRAZolam (*CRX) 0.5 MG TABLET PO (20:35)
[2024-03-25 21:09] LABS: Glucose Point of Care 140 mg/dl (65-105)
[2024-03-26] MEDS: ACETAMINOPHEN 500 MG TABLET PO ×3 (01:08→13:27)
[2024-03-26 04:45] VITALS: BP 141/68; PULSE 62; RESP 18; TEMP 36.7; O2SAT 99
[2024-03-26 06:37] LABS: Basophils Percent Auto 0.7 % (0.2-1.2); Eosinophils Absolute Auto 0.2 K/mm3 (0-0.3); Eosinophils Percent Auto 4.5 % (0-4.4); Hematocrit 28.6 % (42.0-52.0); Hemoglobin 9.4 g/dL (14.0-18.0); Immature Granulocyte Absolute 0.03 K/mm3 (0.00-0.031); Immature Granulocyte Percent A 0.7 % (0-0.5); Lymphocytes Absolute Auto 0.54 K/mm3 (0.9-3.2); Lymphocytes Percent Auto 12.1 % (18.3-44.2); Mean Corpuscular HGB Conc 32.9 g/dl (32-36); Mean Corpuscular Hemoglobin 31.2 pg (26-34); Mean Platelet Volume 9.3 fl (7.4-10.4); Monocytes Absolute Auto 0.7 K/mm3 (0.1-0.6); Monocytes Percent Auto 15.2 % (2.6-8.5); Neutrophils Percent Auto 66.8 % (45.5-73.1); Platelet Count Result 285 k/mm3 (150-375); Red Blood Count 3.01 M/mm3 (4.6-6.20); Red Cell Distribution Width 13.8 % (11.5-14.5); White Blood Count 4.5 K/mm3 (4.5-10.0)
[2024-03-26 06:46] LABS: Anion Gap 9 mmol/L (4-12); Blood Urea Nitrogen 22 mg/dL (9-20); Calcium 8.9 mg/dL (8.4-10.2); Carbon Dioxide 22 mmol/L (22-30); Chloride 104 mmol/L (98-107); Estimated CRCL calculation 38 ml/min; Estimated Glomerular Filt Rate > 60; Glucose 106 mg/dL (65-110); Potassium 3.5 mmol/L (3.4-5.0); Sodium 135 mmol/L (137-145)
[2024-03-26 08:00] VITALS: BP 140/77; PULSE 70; RESP 18; TEMP 36.6; O2SAT 100
[2024-03-26] MEDS: buPROPion HCL SR (12 HR) 150 MG TAB PO (09:39)
[2024-03-26] MEDS: FAMOTIDINE 20 MG TABLET PO (09:39)
[2024-03-26] MEDS: ASPIRIN 325 MG TABLET PO (09:39)
--- NOTE | 2024-03-26 12:45 | PM.DS ---
DS: Admitting Diagnosis Discharge Date 03/26/24 Admitting Diagnosis nausea vomiting acute UTI acute pyelonephritis BPH hyperlipidemia hypertension SHER leukocytosis hyponatremia presence of urostomy DS: Discharge Diagnosis Discharge Diagnosis (1) N&V (nausea and vomiting): Code(s): R11.2 - Nausea with vomiting, unspecified Status: Acute (2) Acute UTI: Code(s): N39.0 - Urinary tract infection, site not specified Status: Acute (3) Acute pyelonephritis: Code(s): N10 - Acute pyelonephritis Status: Acute (4) BPH (benign prostatic hyperplasia): Code(s): N40.0 - Benign prostatic hyperplasia without lower urinary tract symptoms Status: Acute (5) Hyperlipidemia: Code(s): E78.5 - Hyperlipidemia, unspecified Status: Acute (6) Hypertension: Qualifiers: Hypertension type: essential hypertension Qualified Code(s): I10 - Essential (primary) hypertension Code(s): I10 - Essential (primary) hypertension Status: Acute (7) SHER (acute kidney injury): Code(s): N17.9 - Acute kidney failure, unspecified Status: Acute (8) Leukocytosis: Code(s): D72.829 - Elevated white blood cell count, unspecified Status: Acute (9) Hyponatremia: Code(s): E87.1 - Hypo-osmolality and hyponatremia Status: Acute (10) Presence of urostomy: Code(s): Z93.6 - Other artificial openings of urinary tract status Status: Acute DS: Summary Hospital Course Reason for hospitalization: nausea vomiting acute UTI acute pyelonephritis BPH hyperlipidemia hypertension SHER leukocytosis hyponatremia presence of urostomy Hospital Course: This is a 83 year old male who was brought in the hospital on 03/23/24 with complaints of nausea, vomiting, and weakness for 3 days. UA positive for nitrates and leukocytes. He was initially started on Rocephin however urine culture was negative today and antibiotics were stopped. CT of the abdomen/pelvis revealed bilateral pyelonephritis left worse than right. Nausea and vomiting resolved and patient feeling much better today. He is stable for discharge at this time. He will need to follow up with PCP in 1 week. UTI was ruled out with negative urine culture. final diagnosis: acute kidney injury, acute pyelonephritis, hyponatremia Status at Discharge Cognitive/behavioral status at discharge: Alert oriented x3 Functional status at discharge: uses cane/walker Overall status at discharge: patient is progressing back to baseline Time Spent with Patient Time attestation: Total time spent providing and/or coordinating discharge services: Time spent: Greater than 30 minutes Exam Narrative: General: In no acute distress, well nourished Head: atraumatic, no encephalopathy Eyes: EOMI, PERRLA, sclera clear ENT: moist mucous membranes, nasal passages clear Neck: supple, no JVD, no adenopathy, trachea midline Cardiac: Normal S1 and S2. No murmur, gallops or friction rubs, peripheral pulses intact. Respiratory: Lungs clear to auscultation, no adventitious lung sounds Gastrointestinal: soft, non-distended, non-tender, normoactive bowel sounds. : voiding without difficulty. Extremities: moves all extremities well, no edema, good ROM, strength 5/5 Skin: clean, dry, intact. No wounds or lesions. Neuro: Alert and oriented x4, cranial nerves intact, no neuro deficits. Psych: normal mood, normal affect, interactive DS: Data Data Completed and Pending Completed studies during hospitalization: chest/abdomen/ pelvis CT head CT Pending studies at discharge: blood cultures Labs on day of discharge: Labs from last 24 hours 03/26/24 03/25/24 05:57 20:16 WBC 4.5 RBC 3.01 L Hgb 9.4 L Hct 28.6 L MCV 95.0 MCH 31.2 MCHC 32.9 RDW 13.8 Plt Count 285 MPV 9.3 Immature Gran % (Auto) 0.7 H Neut % (Auto) 66.8 Lymph % (Auto) 12.1 L [place] % (
[2024-03-26 14:00] VITALS: BP 140/76; PULSE 74; RESP 18; TEMP 36.6; O2SAT 100
[2024-03-26] MEDS: INFLUENZA TRIVALENT VACCINE 45 MCG/0.5 ML SYRINGE IM (16:51)
== END 2024-03-26 17:02 | disposition home or self-care (01) ==
LOC: ANHED 13:01 → ANH3MEDSUR 15:15
PROVIDERS: Nurse Practitioner; Admitting Provider General Practice; Emergency Provider Emergency Medicine; PCP Family Medicine; Visit Provider Student in an Organized Health Care Education/Training Program
DX: N17.9 Acute kidney failure, unspecified (principal); N10 Acute pyelonephritis; E87.1 Hypo-osmolality and hyponatremia; R53.1 Weakness; R11.2 Nausea with vomiting, unspecified; D72.829 Elevated white blood cell count, unspecified; N40.0 Benign prostatic hyperplasia without lower urinary tract symptoms; I10 Essential (primary) hypertension; E78.5 Hyperlipidemia, unspecified; Z95.1 Presence of aortocoronary bypass graft; Z23 Encounter for immunization; Z20.822 Contact with and (suspected) exposure to COVID-19; Z85.51 Personal history of malignant neoplasm of bladder; Z93.6 Other artificial openings of urinary tract status; Z79.82 Long term (current) use of aspirin; Z79.899 Other long term (current) drug therapy; Z87.891 Personal history of nicotine dependence
CPT/HCPCS: 36415; 70450; 71260; 74177; 80048; 80053; 81001; 82948; 85025; 85610; 85730; 87040; 87086; 87637; 90471; 90656; 93005; 96365; 96375; 97110; 97116; 97161; 99285; A9270; G0008; G0378; J0696; J2270; J2405; J7030; J7120; Q9967

== ENCOUNTER 2024-04-22 18:46 | Emergency (ER) | payer MEDICARE, SELFPAY ==
--- NOTE | ~2024-04-22 | CT_ITS ---
CLINICAL INDICATION: Personal history of bladder cancer post cystectomy with ileal conduit presents w ithout urine output for the last several hours COMPARISON: 03/23/2024 and dating back to. TECHNIQUE: Multiple contiguous axial images of the abdomen and pelvis were performed following the ad ministration of with 100 mL Omnipaque-350 intravenous contrast The dose-length product (DLP) was 206.52 mGy-cm. Automated exposure control and iterative reconstruction technique were employed. FINDINGS/OBSERVATIONS: Visualized lower thorax: Dependent atelectasis. The heart is enlarged, without pericardial effusion. Sternal wires are present. Liver: The liver is not enlarged measuring 16 cm in longitudinal dimension. Homogeneous enhancement is present. Gallbladder and biliary system: The gallbladder is minimally distended, and otherwise unremarkable. Pancreas: The pancreas enhances homogeneously. Trace ductal dilatation is identified, without a discrete mass. Spleen: The spleen enhances homogeneously and is not enlarged measuring 9 cm in longitudinal dimension. Kidneys: Moderate bilateral hydroureteronephrosis is identified. This is not an uncommon finding in patients w ith an ileal conduit, however this was not present on his March 23 examination. Significant perinephric inflammatory change is identified. The ileal conduit is distended with urine, extending only to the undersurface of the anterior abdomin al wall of the right upper quadrant. The microclip's that were previously identified extending from the lateral portion of the stoma to th e orifice, are present, however, the bowel only extends to the undersurface of the anterior abdominal wall, and stops within the right rectus muscle. The dilated portion of the ileal conduit is not visu alized until approximately 10 mm below the stoma along the undersurface of the anterior abdominal wal l. Adrenal glands: Unremarkable. Gastrointestinal tract: Interval enlargement of the right inguinal hernia, now containing multiple loops of colon, distended with fecal stasis. Appendix: The appendix is not visualized. Vasculature: Calcified atherosclerotic disease. Lymph nodes: No pathologically enlarged or morphologically suspicious lymph nodes within the retroperitoneum or at the root of the mesentery. Pelvic structures: Multiple loops of nondilated large bowel extending to the rectum is unremarkable. Body wall and musculoskeletal: Significant degenerative disease within the lower thoracic and lumbosa cral spines, with osteophyte formation, disc space narrowing and endplate changes. Facet arthropathy is also noted, as is vacuum phenomena. 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 Innumerable nonacute findings, as detailed above. Reviewed, dictated and finalized at location A. [facility]ER
[2024-04-22 18:48] VITALS: BP 152/68; PULSE 64; RESP 14; TEMP 36.5; O2SAT 100
--- NOTE | 2024-04-22 19:01 | PC.NURSE ---
Pt has a urostomy with little output today. Pt also reports bilateral flank pain, abdomen tender to palpation in RLQ. Denies nausea or vomiting. Normal BM.
--- NOTE | 2024-04-22 19:25 | ED_ITS ---
HPI - Abdominal Pain General Chief Complaint: Abdominal Pain Stated Complaint: ostomy bag not draining Time Seen by Provider: 04/22/24 19:18 Source: patient and family Mode of arrival: ambulatory Limitations: no limitations History of Present Illness HPI narrative: Patient presents with report that he is not having drainage from his ostomy bag. He confirms that this is not a colostomy but rather a urostomy verses ileostomy/ileal conduit. He has a history of bladder cancer and this was placed a little over 2 years ago at [facility]. He follows with his urologist Dr. Pratt through [facility]. He changed his bag this morning and had only a little bit of drainage at the base of the bag and then nothing since. He is also having abdominal pain rated 7/10 and located in the low bilateral quadrants. No associated nausea or vomiting. He took 2 Tylenol approximately 3-4 hours ago his last bowel movement was this morning and noted to be hard constipated. He does not know if it was bloody but denies any preceding or subsequent diarrheal stools. No fevers or chills. He has a decreased appetite. He did have breakfast this morning has been trying to drink a lot of water today. Normally he drinks several ensure per day but he has only been able have 1. He also notes he has a history of hernias feels like he has a lump in his low pelvic/suprapubic area that he had not appreciated before. Related Data Home Medications Medication Instructions Recorded Confirmed acetaminophen 500 mg tablet 500 mg PO Q6H 10/29/20 03/23/24 (Tylenol Extra Strength) alprazolam 0.5 mg tablet 0.5 mg PO BID PRN Anxiety 10/29/20 03/23/24 aspirin 325 mg tablet 325 mg PO DAILY 10/29/20 03/23/24 bupropion HCl 150 mg tablet,12 hr 150 mg PO BID 10/29/20 03/23/24 sustained-release metoprolol succinate 50 mg 50 mg PO DAILY 10/29/20 03/23/24 tablet,extended release 24 hr losartan 25 mg tablet 25 mg PO DAILY 03/23/24 03/23/24 Allergies Allergy/AdvReac Type Severity Reaction Status Date / Time No Known Allergies Allergy Verified 04/22/24 19:03 [facility] Past Medical History Medical History Bladder cancer Presence of urostomy Placed [facility] approx 2021 Family History Family History Mother Cerebral hemorrhage Hypertension Cerebrovascular accident Sibling Diabetes mellitus Breast cancer Hypertension Sibling Breast cancer Sibling Lung cancer Social History Social History Smoking packs per day: 1 Smoking cigarettes per day: 20.0 Years smoked: 2 Smoking pack-years: 2.00 Smoking status: Former smoker Tobacco type: cigarettes Alcohol intake: current Drinks per week: 4 Substance use: never Substance use type: does not use Do You Feel Safe in your Home?: Yes Lack of Transportation: No Lack of Food: Sometimes True Current Housing: I Have Housing Concerned About Future Housing: No Difficulty Paying Gas/Electric Bills: No Difficulty Paying for Meds: No Currently Unemployed: No Education: Decline to Answer Difficulty w/ Childcare or Family Care: No Spiritual care concerns: No Exam Narrative: GENERAL: Well-appearing, well-nourished, and in no acute distress. HEAD: Normocephalic, atraumatic. EYES: Non injected, non icteric ENT: Nares clear, no rhinorrhea or epistaxis. NECK: Supple. CHEST: Speaking in full sentences. No respiratory distress. HEART: Regular rate and rhythm. . ABDOMEN/: Soft, nondistended. There is a small mass palpable in the supra pubic region. No rigidity or guarding. No output at urostomy although the stump site appears intact, not protruding. Area is otherwise intact without significant skin breakdown or ulceration, no surrounding cellulitis or induration or purulent discharge. EXTREMITIES: Normal range of motion. No lower extremity edema. SKIN: Warm, dry, no rash. NEURO: No focal deficits. Alert and oriented x3. PSYCH: Normal mood and affect. Course Vital Signs Vital signs: Vital Signs Temperature 97.7 F 04/22/24 18:48 Pulse Rate 64 04/22/24 18:48 Respiratory Rate 14 04/22/24 18:48 Blood Pressure 152/68 H 04/22/24 18:48 Pulse Oximetry 100 04/22/24 18:48 Oxygen Delivery Room Air 04/22/24 18:48 Temperature 98.6 F 04/23/24 03:27 Pulse Rate 68 04/23/24 03:27 Respiratory Rate 14 04/23/24 03:27 Blood Pressure 140/68 04/23/24 03:27 Pulse Oximetry 100 04/23/24 03:27 Oxygen Delivery Room Air 04/22/24 18:48 MDM - Abdominal Pain MDM Narrative Medical decision making narrative: Patient presents decreased/no urostomy output since this morning. It is now associated with abdominal pain. Emergency department he is afebrile with vital signs that show mild hypertension. Patient and family describe what sounds like an ileostomy/ileal conduit then for this reason the utility of urinalysis is poor given it touches the GI mucosa. Creatinine is 1.5; it had previously been elevated but that was in the setting of an SHER and had normalized to 1.1 most recently does reflect another acute kidney injury. Fluids have already been ordered pre-emptively. Lipase is elevated greater than 3 times upper limit of normal but pain is not in this area (and no evidence of inflammation once CT is performed later) Patient tells nurse at approximately 9:10 p.m. that his pain is back in worse and he continues to have nausea. New medications ordered for both symptoms. Discussed CT scan with radiologist as they were reading it for clinical context. Given the findings, discussed with patient and family member that the recommendation would be to be seen by Urology (and or IR). Gave the option of starting with our in-house on-call urologist verses contacting [facility] first since that is where is has received his care previously. They are fine with trying to stay at [facility] if agricultural education instructor urologist able to intervene. Dr Franco recommends Slide 14Fr catheter into conduit to see if can get anything out. If not, transfer for possible further intervention to possibly include nephrostomy tubes. I did attempt and was able to advance lubricated 14Fr Sykes only 3cm before meeting considerable resistance. Three attempts were made. Not able to advance further, no urine output. Discussed with [facility] transfer center who will contact urology. Dr Dale at [place] recommends that Dr Franco attempt before bypassing this effort and sending the patient for nephrostomy tube. Dr Franco did come to bedside with cystoscopy equipment available at bedside. He was able to insert a red rubber catheter and advanced it. There was initially 100 mL of urine that were collected in a canister and, at the time of my evaluation of patient, there continues to be yellow urine draining into his urostomy bag. Dr. Veronica he gets had recommended that patient be discharged home with a urinal and follow-up with his urologist though [facility] in the morning. I did advise patient and his daughter that patient keep record of his urinary output. Patient was prescribed acetaminophen. Patient was provided a printout of the radiology interpretation as well as a disc of the images. Verifies understanding of the plan. All questions answered. Stable for discharge. Differential Diagnosis Differential diagnosis: Likely abdominal pain, constipation, diverticulitis, small bowel obstruction and other (Large bowel obstruction, dehydration, acute renal failure, ostomy complication) Lab Data Attestation: I reviewed the patient's lab results. Lab results narrative: Normocytic anemia, no leukocytosis 04/22/24 19:54 04/22/24 19:54 Labs: Lab Results 04/22/24 04/22/24 Range/Units 19:54 20:29 WBC 10.0 (4.5-10.0) K/mm3 RBC 3.94 L (4.6-6.20) M/mm3 Hgb 12.4 L D (14.0-18.0) g/dL Hct 37.0 L (42.0-52.0) % MCV 93.9 (80-100) fl MCH 31.5 (26-34) pg MCHC 33.5 (32-36) g/dl RDW 14.2 (11.5-14.5) % Plt Count 175 (150-375) k/mm3 MPV 10.3 (7.4-10.4) fl Immature Gran % (Auto) 0.2 (0-0.5) % Neut % (Auto) 76.7 H (45.5-73.1) % Lymph % (Auto) 10.9 L (18.3-44.2) % Carver % (Auto) 8.9 H (2.6-8.5) % Eos % (Auto) 2.8 (0-4.4) % Baso % (Auto) 0.5 (0.2-1.2) % Lymph # (Auto) 1.09 (0.9-3.2) K/mm3 Carver # (Auto) 0.9 H (0.1-0.6) K/mm3 Eos # (Auto) 0.3 (0-0.3) K/mm3 Baso # (Auto) 0.1 (0.0-0.1) K/mm3 Abs Immat Gran (auto) 0.02 (0.00-0.031) K/mm3 Absolute Neuts (auto) 7.7 H (1.3-6.7) K/mm3 Absolute Nucleated RBC 0.000 (0.0-0.012) K/mm3 Nucleated RBC % 0.0 (0.0-0.2) % PT 13.3 (11.1-14.7) Seconds INR 1.0 Sodium 132 L (137-145) mmol/L Potassium 4.7 (3.4-5.0) mmol/L Chloride 101 (98-107) mmol/L Carbon Dioxide 20 L (22-30) mmol/L Anion Gap 11 (4-12) mmol/L BUN 46 H D (9-20) mg/dL Creatinine 1.50 H (0.7-1.3) mg/dL Estim Creat Clear Calc 27 ml/min Estimated GFR 45 L (59 - ) Glucose 98 (65-110) mg/dL Lactic Acid 1.3 (0.7-2.0) mmol/L Calcium 9.4 (8.4-10.2) mg/dL Magnesium 2.1 (1.6-2.3) mg/dL Total Bilirubin 0.9 (0.2-1.3) mg/dL AST 31 (17-59) U/L ALT 16 (6-50) U/L Alkaline Phosphatase 98 (38-126) U/L Total Protein 7.0 (6.3-8.2) g/dL Albumin 4.3 (3.5-5.1) g/dL Lipase 965 H (23-300) U/L Imaging Data Radiologist's impression: ITS Impressions Abdomen/Pelvis CT 04/22/24 23:06 IMPRESSION: 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 Innumerable nonacute findings, as detailed above. Discharge Plan Discharge Clinical Impression: Complication of Ileal conduit, Normocytic anemia, SHER (acute kidney injury), Hydroureteronephrosis, Retraction of stoma, Elevated lipase Patient Disposition: Home, Self-Care Condition: Stable Instructions: Antibiotic Form, Acute Kidney Injury (DC), Cystectomy with Ileal Conduit (DC), Hydronephrosis (ED), Anemia (ED) Additional Instructions: Use the urinal and you can measure urine output. Acetaminophen/Tylenol can be taken for pain (maximum 4000 mg per day). Call your urologist Dr Pratt in the morning. You did have evidence of an acute kidney injury (SHER) and received 1L of fluids (Cr 1.5, from 1.1 at the time of recent hospitalization discharge). They might recommend rechecking this lab. Return the emergency department with any new or worsening symptoms such as intractable pain, fever greater than 100.4? F, intractable nausea vomiting , no more urinary output, etc. YOu received the disc and printout of the radiology interpretation from today's CT scan. Prescriptions: New acetaminophen 500 mg capsule 1,000 mg PO Q6H PRN (Reason: pain) Qty: 30 0RF No Action bupropion HCl 150 mg tablet sustained-release 12 hr 150 mg PO BID aspirin 325 mg Tablet 325 mg PO DAILY metoprolol succinate 50 mg tablet extended release 24 hr 50 mg PO DAILY acetaminophen [Tylenol Extra Strength] 500 mg Tablet 500 mg PO Q6H alprazolam 0.5 mg tablet 0.5 mg PO BID PRN (Reason: Anxiety) nitroglycerin [Nitrostat] 0.4 mg Tablet, Sublingual 0.4 mg sublingual Q5MIN PRN (Reason: Chest Pain) Qty: 30 0RF losartan 25 mg tablet 25 mg PO DAILY Follow-up/Referrals: Adriana,Raheel Rivera MD [Primary Care Provider] - Time of Disposition: 02:46
[2024-04-22 20:00] LABS: Basophils Absolute Auto 0.1 K/mm3 (0.0-0.1); Basophils Percent Auto 0.5 % (0.2-1.2); Eosinophils Absolute Auto 0.3 K/mm3 (0-0.3); Eosinophils Percent Auto 2.8 % (0-4.4); Hemoglobin 12.4 g/dL (14.0-18.0); Immature Granulocyte Absolute 0.02 K/mm3 (0.00-0.031); Immature Granulocyte Percent A 0.2 % (0-0.5); Lymphocytes Absolute Auto 1.09 K/mm3 (0.9-3.2); Lymphocytes Percent Auto 10.9 % (18.3-44.2); Mean Corpuscular HGB Conc 33.5 g/dl (32-36); Mean Corpuscular Hemoglobin 31.5 pg (26-34); Mean Corpuscular Volume 93.9 fl (80-100); Mean Platelet Volume 10.3 fl (7.4-10.4); Monocytes Absolute Auto 0.9 K/mm3 (0.1-0.6); Monocytes Percent Auto 8.9 % (2.6-8.5); Neutrophils Absolute Auto 7.7 K/mm3 (1.3-6.7); Neutrophils Percent Auto 76.7 % (45.5-73.1); Platelet Count Result 175 k/mm3 (150-375); Red Blood Count 3.94 M/mm3 (4.6-6.20); Red Cell Distribution Width 14.2 % (11.5-14.5)
[2024-04-22] MEDS: MORPHINE SULFATE (*CRX) 4 MG/ML INJ IV PUSH (20:02)
[2024-04-22] MEDS: LACTATED RINGERS 1,000 ML 999 ML IV CONT (20:02)
[2024-04-22 20:06] VITALS: BP 131/65; PULSE 51; RESP 19; O2SAT 99
[2024-04-22 20:11] LABS: Prothrombin Time 13.3 Seconds (11.1-14.7)
[2024-04-22 20:13] LABS: Alanine Aminotransferase 16 U/L (6-50); Albumin Level 4.3 g/dL (3.5-5.1); Alkaline Phosphatase 98 U/L (38-126); Anion Gap 11 mmol/L (4-12); Aspartate Amino Transferase 31 U/L (17-59); Bilirubin,Total 0.9 mg/dL (0.2-1.3); Blood Urea Nitrogen 46 mg/dL (9-20); Calcium 9.4 mg/dL (8.4-10.2); Carbon Dioxide 20 mmol/L (22-30); Chloride 101 mmol/L (98-107); Estimated CRCL calculation 27 ml/min; Estimated Glomerular Filt Rate 45; Glucose 98 mg/dL (65-110); Lipase 965 U/L (23-300); Magnesium 2.1 mg/dL (1.6-2.3); Potassium 4.7 mmol/L (3.4-5.0); Sodium 132 mmol/L (137-145)
[2024-04-22] MEDS: ONDANSETRON INJ 4 MG/2 ML VIAL IV PUSH (20:35)
[2024-04-22 20:46] LABS: Lactic Acid Reflex 1.3 mmol/L (0.7-2.0)
[2024-04-22] MEDS: HYDROmorphone HCL INJ (*CRX) 1 MG/ML SYR 0.5 MG IV PUSH (21:26)
[2024-04-22] MEDS: PROCHLORPERAZINE EDISYLATE 10 MG/2 ML VIAL 5 MG IV PUSH (21:27)
[2024-04-22 21:35] VITALS: BP 133/61; PULSE 98; RESP 18; O2SAT 98
[2024-04-22 22:35] VITALS: BP 154/62; PULSE 60; RESP 16; O2SAT 99
[2024-04-22] MEDS: ACETAMINOPHEN 500 MG TABLET 1000 MG PO (23:39)
[2024-04-23 00:01] VITALS: BP 150/68; PULSE 65; RESP 13; O2SAT 98
[2024-04-23 02:30] VITALS: BP 142/60; PULSE 68; RESP 15; O2SAT 100
--- NOTE | 2024-04-23 02:32 | P.CONUR_ITS ---
Assessment and Plan Assessment and plan (1) Complication of Ileal conduit: Code(s): N99.528 - Other complication of incontinent external stoma of urinary tract Status: Acute Assessment and Plan: Patient has a small ileal conduit. I was able to manipulate a 14 [place] coude into the stoma. I then advanced it with some manipulation into the conduit. There was approximately 125 cc of initial return of clear yellow urine. I inflated the balloon with 5 cc. I then aspirated another 20-25 cc. Patient denied any discomfort. The ostomy bag was then attached. He is being discharged home with the catheter in place as well as the ostomy bag. He is instructed to call his urologist this morning and notify him of the events that occurred. The CT scan was copied and given to the patient's daughter along with the report. Urology Consult Note HPI Date Seen: 04/23/24 Time Seen: 02:32 Primary Care Provider: Raheel Wright, Consult Narrative Reason for consult: dilated ileal conduit Narrative: Taurus Reid is a 83 year old male with history of ileal conduit urinary diversion [address] Taurus Pratt at [facility]. patient states that he had no drainage from his conduit this morning. He was also having some abdominal discomfort. He underwent a CT scan which revealed bilateral hydroureter which is not surprising but it does show a dilated conduit proximal to the fascia. His creatinine level was 1.5. He has been afebrile with a normal white count. They were unsuccessful at placing a Sykes catheter for drainage we were asked to see him. Review of Systems Review of Systems: All systems reviewed & are unremarkable except as noted in HPI and below PMFSH Past Medical History Medical History Bladder cancer Presence of urostomy Placed [facility] approx 2021 Family History Family History Mother Cerebral hemorrhage Hypertension Cerebrovascular accident Sibling Diabetes mellitus Breast cancer Hypertension Sibling Breast cancer Sibling Lung cancer Social History Social History Smoking packs per day: 1 Smoking cigarettes per day: 20.0 Years smoked: 2 Smoking pack-years: 2.00 Smoking status: Former smoker Tobacco type: cigarettes Alcohol intake: current Drinks per week: 4 Substance use: never Substance use type: does not use Do You Feel Safe in your Home?: Yes Lack of Transportation: No Lack of Food: Sometimes True Current Housing: I Have Housing Concerned About Future Housing: No Difficulty Paying Gas/Electric Bills: No Difficulty Paying for Meds: No Currently Unemployed: No Education: Decline to Answer Difficulty w/ Childcare or Family Care: No Spiritual care concerns: No Meds Home Medications and Allergies Home Medications Medication Instructions Recorded Confirmed Type acetaminophen 500 mg tablet 500 mg PO Q6H 10/29/20 03/23/24 History (Tylenol Extra Strength) alprazolam 0.5 mg tablet 0.5 mg PO BID PRN Anxiety 10/29/20 03/23/24 History aspirin 325 mg tablet 325 mg PO DAILY 10/29/20 03/23/24 History bupropion HCl 150 mg tablet,12 hr 150 mg PO BID 10/29/20 03/23/24 History sustained-release metoprolol succinate 50 mg 50 mg PO DAILY 10/29/20 03/23/24 History tablet,extended release 24 hr nitroglycerin 0.4 mg sublingual 0.4 mg sublingual Q5MIN PRN Chest 10/29/20 03/23/24 Rx tablet (Nitrostat) Pain #30 tabs losartan 25 mg tablet 25 mg PO DAILY 03/23/24 03/23/24 History Allergies Allergy/AdvReac Type Severity Reaction Status Date / Time No Known Allergies Allergy Verified 04/22/24 19:03 Vital Signs Vital Signs - 24 hr 04/22/24 18:48 04/22/24 20:06 04/22/24 21:35 Temperature 36.5 C Pulse Rate 64 51 L 98 Respiratory Rate 14 19 18 Blood Pressure 152/68 H 131/65 133/61 Pulse Oximetry 100 99 98 Oxygen Delivery Room Air 04/22/24 22:35 04/23/24 00:01 Temperature Pulse Rate 60 65 Respiratory Rate 16 13 Blood Pressure 154/62 H 150/68 H Pulse Oximetry 99 98 Oxygen Delivery Exam Const: General: cooperative and comfortable Resp: Effort & Inspection: normal respiratory effort Cardio: Rate: regular rate GI: Inspection: normal to inspection and non-distended GI Palp: Yes Soft to palpation Results Labs 04/22/24 19:54 04/22/24 19:54 Labs: Short CBC 04/22/24 Range/Units 19:54 WBC 10.0 (4.5-10.0) K/mm3 Hgb 12.4 L D (14.0-18.0) g/dL Hct 37.0 L (42.0-52.0) % Plt Count 175 (150-375) k/mm3 BMP 04/22/24 19:54 Sodium 132 L Potassium 4.7 Chloride 101 Carbon Dioxide 20 L BUN 46 H D Creatinine 1.50 H Glucose 98 Calcium 9.4 Liver Function 04/22/24 Range/Units 19:54 Total Bilirubin 0.9 (0.2-1.3) mg/dL AST 31 (17-59) U/L ALT 16 (6-50) U/L Alkaline Phosphatase 98 (38-126) U/L Albumin 4.3 (3.5-5.1) g/dL
[2024-04-23 03:26] VITALS: BP 140/68; PULSE 68; RESP 14; TEMP 37; O2SAT 100
[2024-04-23 03:27] VITALS: BP 140/68; PULSE 68; RESP 14; TEMP 37; O2SAT 100
== END 2024-04-23 03:29 | disposition home or self-care (01) ==
PROVIDERS: Emergency Provider Student in an Organized Health Care Education/Training Program; PCP Family Medicine
DX: N99.528 Other complication of incontinent external stoma of urinary tract (principal); N17.9 Acute kidney failure, unspecified; N13.30 Unspecified hydronephrosis; D64.9 Anemia, unspecified; R74.8 Abnormal levels of other serum enzymes; Z85.51 Personal history of malignant neoplasm of bladder; Z87.891 Personal history of nicotine dependence; Z79.82 Long term (current) use of aspirin; Z79.899 Other long term (current) drug therapy
CPT/HCPCS: 36415; 74177; 80053; 83605; 83690; 83735; 85025; 85610; 96361; 96374; 96375; 99284; A9270; J0780; J1171; J2270; J2405; J7120; Q9967